=== PATIENT | female | born 1990 | race Caucasian/White ===

== ENCOUNTER 2023-11-17 03:55 | Day surgery (SDC) | payer OTHER ==
[2023-11-17 11:21] VITALS: BMI 29.2
[2023-11-17] MEDS ORDERED: BUPIVACAINE HCL/PF 0.25% (2.5MG/ML) 10 ML VIAL ONE (12:28)
[2023-11-17] MEDS ORDERED: BUPIVACAINE HCL/PF 0.75% 10 ML VIAL ONE (12:28)
[2023-11-17] MEDS ORDERED: ACETAMINOPHEN 500 MG TABLET (FP) PO PRN (12:34)
[2023-11-17] MEDS ORDERED: SODIUM CHLORIDE 1,000 ML IV SCH (12:45)
[2023-11-17] MEDS ORDERED: MIDAZOLAM HCL 2 MG/2 ML SINGLE DOSE VIAL ONE (12:48)
[2023-11-17 16:45] VITALS: RESP 18
[2023-11-17 16:50] VITALS: BP 100/58; PULSE 68; TEMP 97.6
== END 2023-11-17 14:55 | disposition home or self-care (01) ==
LOC: JASU-SURG 03:55
PROVIDERS: ATTEND Pain Medicine Pain Medicine
PROC: 3E0T3BZ Introduction of Anesthetic Agent into Peripheral Nerves and Plexi, Percutaneous Approach (ICD-10-PCS; principal; 2023-11-17 12:54)
DX: G90.59 Complex regional pain syndrome I of other specified site (principal)
CPT/HCPCS: 76000-TC-FY; 81025

== ENCOUNTER 2024-11-21 14:31 | Inpatient (IN) | payer OTHER ==
[2024-11-21] MEDS ORDERED: ONDANSETRON 4 MG/2 ML VIAL ONE ×2 (15:50→20:30)
[2024-11-21] MEDS ORDERED: FAMOTIDINE 20 MG/50 ML IVPB 20 MG/50 ML MG IVPB ONE (15:51)
[2024-11-21 15:55] LABS: ABSOLUTE IMMATURE GRANULOCYTES 0.05 x10^3/uL (0.0-0.031); BASOPHILS # 0.03 x10^3/uL (0.01-0.08); EOSINOPHIL % 1.3 % (0.7-5.8); EOSINOPHILS # 0.15 x10^3/uL (0.04-0.36); MCHC 32.1 g/dl (32.2-35.5); MEAN CELL VOLUME 84.6 fl (79.4-94.8); MEAN PLT VOLUME 11.3 fl (9.4-12.3); MONOCYTE # 0.56 x10^3/uL (0.24-0.86); MONOCYTE % 4.7 % (4.7-12.5); RDW 14.9 % (12.1-16.8)
[2024-11-21] MEDS: FAMOTIDINE 20 MG/50 ML IVPB 20 MG/50 ML MG IVPB ONE (16:13)
[2024-11-21] MEDS: ONDANSETRON 4 MG/2 ML VIAL IVPUSH ONE ×2 (16:13→20:38)
[2024-11-21] MEDS: SODIUM CHLORIDE 1,000 ML IV STA (16:13)
[2024-11-21] MEDS ORDERED: ACETAMINOPHEN INJECTION 100 ML ONE (16:21)
[2024-11-21] MEDS: ACETAMINOPHEN 1000 MG/100 ML BAG IVPB ONE (16:22)
[2024-11-21 16:24] LABS: HCG,QUALITATIVE URINE Negative
[2024-11-21 16:25] LABS: GLUCOSE,RANDOM 97.0 mg/dL (74-106); TOT PROT 7.3 g/dl (6.4-8.2)
[2024-11-21 16:25] LABS: EPI CELLS 7 /uL (0-25.1); HYALINE CASTS 0 /uL (0-3.1); URINE APPEARANCE CLEAR; URINE BACTERIA 503 /uL (0-1359); URINE BILIRUBIN NEGATIVE (NEGATIVE); URINE COLOR YELLOW; URINE GLUCOSE (UA) NEGATIVE (NEGATIVE); URINE KETONE 1+ (NEGATIVE); URINE LEUK ESTERASE NEGATIVE (NEGATIVE); URINE NITRITE NEGATIVE (NEGATIVE); URINE PROTEIN NEGATIVE (NEGATIVE); URINE RBC 33 /uL (0-23.9); URINE UROBILINOGEN 0.2 mg/dL (0.2-1.0); URINE WBC 5 /uL (0-25.8)
[2024-11-21 16:26] LABS: CO2 22.0 mmol/L (21-32)
[2024-11-21 16:28] LABS: ALK PHOS 111.0 U/L (40-150)
[2024-11-21 16:30] LABS: SGOT/AST 30.0 U/L (5-34); SGPT/ALT 32.0 U/L (0-55)
[2024-11-21 16:31] LABS: CREATININE 0.75 mg/dL (0.55-1.3)
[2024-11-21] MEDS ORDERED: PIPERACILLIN/TAZOB 4.5 GM 4.5 GM/100 ML BAG IVPB ONE (19:46)
[2024-11-21] MEDS: morphine CARPU-JECT 4 MG/1 ML DISP.SYRIN IVPUSH ONE (19:56)
[2024-11-21] MEDS: PIPERACILLIN/TAZOB 4.5 GM 4.5 GM in DEXTROSE 5%-WATER 100 ML IVPB ONE (19:56)
[2024-11-21] MEDS ORDERED: morphine CARPU-JECT 2 MG/1 ML DISP.SYRIN IVPUSH PRN (20:50)
[2024-11-21] MEDS ORDERED: ONDANSETRON 4 MG/2 ML VIAL IVPUSH PRN (20:56)
[2024-11-21] MEDS: DEXTROSE 5%-0.45% SALINE 1,000 ML IV SCH (22:06)
[2024-11-21] MEDS: AMPICILLIN NA/SULBACTAM NA 3 GM in SODIUM CHLORIDE 100 ML IVPB SCH (22:07)
[2024-11-21 22:42] VITALS: BMI 27.5
[2024-11-21 23:24] LABS: EPI CELLS 5 /uL (0-25.1); HYALINE CASTS 0 /uL (0-3.1); URINE APPEARANCE CLEAR; URINE BACTERIA 694 /uL (0-1359); URINE BILIRUBIN NEGATIVE (NEGATIVE); URINE COLOR YELLOW; URINE GLUCOSE (UA) NEGATIVE (NEGATIVE); URINE KETONE TRACE (NEGATIVE); URINE LEUK ESTERASE NEGATIVE (NEGATIVE); URINE NITRITE NEGATIVE (NEGATIVE); URINE PROTEIN NEGATIVE (NEGATIVE); URINE RBC 28 /uL (0-23.9); URINE UROBILINOGEN 0.2 mg/dL (0.2-1.0)
[2024-11-22] MEDS: ACETAMINOPHEN 1000 MG/100 ML BAG IVPB PRN ×2 (01:40→18:26)
[2024-11-22] MEDS: LEVOTHYROXINE NA 50 MCG TABLET (FP) PO SCH (06:02)
[2024-11-22] MEDS ORDERED: BUPIVACAINE HCL/PF 0.25% (2.5MG/ML) 10 ML VIAL ONE (07:31)
[2024-11-22 07:53] LABS: ABSOLUTE IMMATURE GRANULOCYTES 0.02 x10^3/uL (0.0-0.031); BASOPHILS # 0.03 x10^3/uL (0.01-0.08); EOSINOPHIL % 2.9 % (0.7-5.8); EOSINOPHILS # 0.23 x10^3/uL (0.04-0.36); MCHC 32.0 g/dl (32.2-35.5); MEAN CELL VOLUME 85.6 fl (79.4-94.8); MEAN PLT VOLUME 10.8 fl (9.4-12.3); MONOCYTE # 0.56 x10^3/uL (0.24-0.86); MONOCYTE % 7.1 % (4.7-12.5); RDW 15.0 % (12.1-16.8)
[2024-11-22] MEDS ORDERED: PROPOFOL 40 ML ONE (08:04)
[2024-11-22] MEDS ORDERED: ROCURONIUM BROMIDE 50 MG/5 ML SYRINGE ONE (08:04)
[2024-11-22] MEDS ORDERED: SUCCINYLCHOLINE CHLORIDE 200 MG/10 ML SYRINGE ONE (08:04)
[2024-11-22 08:10] LABS: GLUCOSE,RANDOM 102.0 mg/dL (74-106); TOT PROT 5.8 g/dl (6.4-8.2)
[2024-11-22 08:11] LABS: CO2 25.0 mmol/L (21-32)
[2024-11-22 08:13] LABS: ALK PHOS 91.0 U/L (40-150)
[2024-11-22 08:16] LABS: CREATININE 0.86 mg/dL (0.55-1.3); INR 1.06 (0.83-1.09); PROTHROMBIN TIME (PATIENT) 11.6 SEC (9.7-13.0); SGOT/AST 26.0 U/L (5-34); SGPT/ALT 27.0 U/L (0-55)
[2024-11-22] MEDS ORDERED: MIDAZOLAM HCL 2 MG/2 ML SINGLE DOSE VIAL ONE (09:18)
[2024-11-22] MEDS: cefOXitin SODIUM 2 GM VIAL (RESTRICTED TO ID) IVPB ONE (09:28)
[2024-11-22] MEDS ORDERED: ONDANSETRON 4 MG/2 ML VIAL ONE (09:29)
[2024-11-22] MEDS ORDERED: DEXAMETHASONE SOD PHOSPHATE 4 MG/1 ML VIAL ONE (09:29)
[2024-11-22] MEDS ORDERED: KETOROLAC TROMETHAMINE 30 MG/1 ML VIAL ONE (09:29)
[2024-11-22] MEDS ORDERED: cefOXitin SODIUM 2 GM VIAL (RESTRICTED TO ID) IVPB ONE (09:36)
[2024-11-22] MEDS: BUPIVACAINE HCL/PF 2.5 MG/ML - 30 ML VIAL IJ ONE ×2 (09:41)
[2024-11-22] MEDS ORDERED: ENOXAPARIN NA (PORCINE) 40 MG/0.4 ML DISP.SYRIN SQ SCH (10:00)
[2024-11-22] MEDS ORDERED: PANTOPRAZOLE 40 MG TABLET PO SCH (10:00)
[2024-11-22] MEDS ORDERED: SUGAMMADEX SODIUM 200 MG/2 ML VIAL ONE ×2 (10:03→10:19)
[2024-11-22] MEDS ORDERED: GLYCOPYRROLATE 0.2 MG/1 ML VIAL ONE (10:03)
[2024-11-22] MEDS ORDERED: NEOSTIGMINE METHYLSULFATE 0.5 MG/1 ML - 10 ML MDV ONE (10:03)
[2024-11-22] MEDS ORDERED: HALOPERIDOL LACTATE 5 MG/ML ONE (10:39)
[2024-11-22] MEDS: HALOPERIDOL LACTATE 5 MG/ML IVPUSH ONE (10:41)
[2024-11-22] MEDS ORDERED: ACETAMINOPHEN INJECTION 100 ML ONE (10:44)
[2024-11-22] MEDS: LACTATED RINGERS SOLUTION 1,000 ML IV SCH (11:04)
[2024-11-22] MEDS: ACETAMINOPHEN 1000 MG/100 ML BAG IVPB ONE (11:04)
[2024-11-22] MEDS ORDERED: morphine CARPU-JECT 2 MG/1 ML DISP.SYRIN ONE (11:18)
[2024-11-22] MEDS: morphine CARPU-JECT 2 MG/1 ML DISP.SYRIN IVPUSH PRN (11:19)
[2024-11-22] MEDS: DEXTROSE 5%-0.45% SALINE 1,000 ML IV SCH (12:28)
[2024-11-22] MEDS: AMPICILLIN NA/SULBACTAM NA 3 GM in SODIUM CHLORIDE 100 ML IVPB SCH (14:50)
[2024-11-22] MEDS: ONDANSETRON 4 MG/2 ML VIAL IVPUSH PRN (18:27)
[2024-11-23] MEDS: LEVOTHYROXINE NA 50 MCG TABLET (FP) PO SCH (06:52)
[2024-11-23 07:53] LABS: ABSOLUTE IMMATURE GRANULOCYTES 0.04 x10^3/uL (0.0-0.031); BASOPHILS # 0.01 x10^3/uL (0.01-0.08); EOSINOPHIL % 0.0 % (0.7-5.8); EOSINOPHILS # 0.00 x10^3/uL (0.04-0.36); MCHC 32.2 g/dl (32.2-35.5); MEAN CELL VOLUME 84.9 fl (79.4-94.8); MEAN PLT VOLUME 11.4 fl (9.4-12.3); MONOCYTE # 0.48 x10^3/uL (0.24-0.86); MONOCYTE % 5.9 % (4.7-12.5); RDW 15.0 % (12.1-16.8)
[2024-11-23 08:34] LABS: GLUCOSE,RANDOM 118.0 mg/dL (74-106)
[2024-11-23 08:35] LABS: TOT PROT 5.9 g/dl (6.4-8.2)
[2024-11-23 08:36] LABS: CO2 23.0 mmol/L (21-32)
[2024-11-23 08:37] LABS: ALK PHOS 92.0 U/L (40-150)
[2024-11-23 08:40] LABS: CREATININE 0.74 mg/dL (0.55-1.3); SGOT/AST 26.0 U/L (5-34); SGPT/ALT 28.0 U/L (0-55)
[2024-11-23] MEDS: ENOXAPARIN NA (PORCINE) 40 MG/0.4 ML DISP.SYRIN SQ SCH (09:09)
[2024-11-23] MEDS: PANTOPRAZOLE 40 MG TABLET PO SCH (09:10)
[2024-11-23 10:15] VITALS: RESP 16
[2024-11-23] MEDS ORDERED: morphine CARPU-JECT 2 MG/1 ML DISP.SYRIN IVPUSH PRN (11:49)
[2024-11-23] MEDS ORDERED: SIMETHICONE 40 MG/0.6 ML BOTTLE PO ONE (12:14)
[2024-11-23] MEDS: SIMETHICONE 40 MG/0.6 ML BOTTLE PO ONE (13:16)
[2024-11-23] MEDS: IBUPROFEN 400 MG TABLET (FP) PO ONE (13:44)
[2024-11-23 14:42] VITALS: BP 109/70; PULSE 79; TEMP 98.1
== END 2024-11-23 15:32 | disposition home or self-care (01) | DRG 225 ==
LOC: JER 14:31 → JERBED 20:52 → J6S 21:54
PROVIDERS: ADMIT Hospitalist; ATTEND Internal Medicine
PROC: 0DTJ4ZZ Resection of Appendix, Percutaneous Endoscopic Approach (ICD-10-PCS; principal; 2024-11-22 08:00)
DX: K36 Other appendicitis (principal); R55 Syncope and collapse; E03.9 Hypothyroidism, unspecified; E78.5 Hyperlipidemia, unspecified; D13.5 Benign neoplasm of extrahepatic bile ducts; K76.0 Fatty (change of) liver, not elsewhere classified
CPT/HCPCS: 36415; 74177-TC; 76705-TC; 80053; 81003; 82150; 83690; 83735; 84100; 84703; 85025; 85610; 86850; 86900; 86901; 88304-TC; 93005; 93010; 94010; 94760; 99285-25